=== PATIENT | female | born 1990 | race Caucasian/White ===

== ENCOUNTER 2019-03-11 19:27 | Emergency (ER) | payer BC ==
[~2019-03-11] VITALS: Ht 157.5 cm; Wt 60.8 kg
[2019-03-11 19:57] VITALS: BP 101/64
--- NOTE | 2019-03-11 20:03 | NUR ---
PT AMBULATED TO LOBBY TO A/W BED
--- NOTE | 2019-03-11 20:15 | NUR ---
PT AMBULATED TO CHAIR A.
--- NOTE | 2019-03-11 20:17 | NUR ---
28/F C/O BILATERAL EAR PAIN X 1WEEK INTERMITTENT, WHILE COUGHING. PT REPORTS HAVNG COLD X 2 WEEKS WITH RUNNY NOSE, COUGH, AND SORE THROAT. MEDHX- NONE ALLERGY- TYLENOL
[2019-03-11] MEDS ORDERED: DEXAMETHASONE 10 MG/ML VIAL IM ONE (20:40)
--- NOTE | 2019-03-11 21:10 | NUR ---
Patient discharged with v/s stable. Written and verbal after care instructions given and explained. Patient alert, oriented and verbalized understanding of instructions. Ambulatory with steady gait. All questions addressed prior to discharge. ID band removed. Patient advised to follow up with PMD. Rx of IBUPROFEN, BROMFED-DM, AND AMOXICILLIN given. Patient educated on indication of medication including possible reaction and side effects. Opportunity to ask questions provided and answered.
[2019-03-11 21:11] VITALS: BP 101/64
== END 2019-03-11 21:10 | disposition home or self-care (01) ==
LOC: MED 19:27
DX: H66.93 Otitis media, unspecified, bilateral (principal); J02.9 Acute pharyngitis, unspecified; Z88.6 Allergy status to analgesic agent
CPT/HCPCS: 96372; 99283; J1100